=== PATIENT | female | born 1975 | race Caucasian/White ===

== ENCOUNTER 2021-09-23 07:45 | Day surgery (SDC) | payer MEDICAID ==
[2021-09-23 08:00] VITALS: BP 132/78
[2021-09-23] MEDS ORDERED: MIDAZolam 1 MG/ML 5ML VIAL ONE (08:07)
[2021-09-23] MEDS ORDERED: fentaNYL/PF 50MCG/1 ML 2ML syringe ONE (08:07)
[2021-09-23] MEDS ORDERED: NO HOME MEDS (08:14)
[2021-09-23 10:37] VITALS: BP 109/66
[2021-09-23 10:47] VITALS: BP 87/40
[2021-09-23 10:57] VITALS: BP 103/59
[2021-09-23 11:07] VITALS: BP 109/37
== END 2021-09-23 11:20 | disposition home or self-care (01) ==
LOC: GI LAB 07:45
PROVIDERS: ATTEND Internal Medicine Gastroenterology
DX: D12.0 Benign neoplasm of cecum (principal); D12.3 Benign neoplasm of transverse colon; D12.8 Benign neoplasm of rectum; K64.8 Other hemorrhoids
CPT/HCPCS: 45380; 45381; 45385; 99152; 99153; C1773; J2250; J3010; J7030; Z7512; A4620

== ENCOUNTER 2024-08-05 12:01 | Emergency (ER) | payer SELFPAY ==
[~2024-08-05] VITALS: Ht 157.5 cm; Wt 86.5 kg
[2024-08-05 12:01] VITALS: TEMP 97.8
[~2024-08-05 12:01] MED LIST: NO HOME MEDS
[2024-08-05 12:24] LABS: BILIRUBIN,URINE NEGATIVE (Neg); CLARITY,URINE SLIGHTLY CLOUDY (Clear); COLOR,URINE YELLOW (Yellow); GLUCOSE, URINE NEGATIVE (Neg); KETONES,URINE NEGATIVE (Neg); LEUKOCYTE ESTERASE ,URINE NEGATIVE (Neg); NITRITES, URINE NEGATIVE (Neg); OCCULT BLOOD,URINE LARGE (Neg); PH,URINE 5.5 (4.8-8.0); PROTEIN,URINE TRACE mg/dl (Neg); UA COLLECTION TYPE CLN CATCH MIDSTREAM; URINE HCG NEGATIVE (NEG); UROBILINOGEN,URINE 0.2 E.U/dL (0.2-1.0)
[2024-08-05] MEDS: ondansetron/PF 4mg/2ml inj IV ONE (12:41)
[2024-08-05] MEDS: morphine 2 MG/ML inj. syringe IV ONE (12:42)
[2024-08-05] MEDS: normal saline 1000ml 1,000 ML IV ONE (12:42)
[2024-08-05 12:49] LABS: BACTERIA,URINE 1+ /HPF (Neg); MUCUS STRANDS MODERATE /LPF (Neg); RBC,URINE TNTC /HPF (0-2); SQUAMOUS EPITHELIAL CELL,UR MANY /LPF (FEW); WBC,URINE 0-4 /HPF (0-4)
[2024-08-05 13:05] LABS: BASOPHILS # (AUTO) 0.1 X10'3 (0-0.2); BASOPHILS % (AUTO) 0.8 % (0-1); EOSINOPHILS # (AUTO) 0.3 X10'3 (0-0.9); EOSINOPHILS % (AUTO) 2.7 % (0-6); HEMATOCRIT 43.6 % (35.0-45.0); HEMOGLOBIN 14.6 g/dl (12.0-16.0); LYMPHOCYTES # (AUTO) 4.3 X10'3 (1.1-4.8); MEAN CORPUSCULAR HEMOGLOBIN 33.1 PG (27.0-31.0); MEAN CORPUSCULAR HGB CONC 33.5 g/dL (33.0-36.5); MEAN CORPUSCULAR VOLUME 98.7 FL (78-98); MEAN PLATELET VOLUME 9.3 FL (7.4-10.4); MONOCYTES # (AUTO) 0.8 X10'3 (0-0.9); MONOCYTES % (AUTO) 7.1 % (2-12); NEUTROPHILS # (AUTO) 6.2 X10'3 (1.8-7.7); NEUTROPHILS % (AUTO) 52.4 % (42-75); PLATELET COUNT 321 X10'3 (140-440); RED BLOOD COUNT 4.41 X10'6 (4.20-5.60); RED CELL DISTRIBUTION WIDTH 13.8 % (11.5-14.5); WHITE BLOOD COUNT 11.7 X10'3 (4.5-11.0)
[2024-08-05 13:26] LABS: ALANINE AMINOTRANSFERASE 28 U/L (12-78); ALBUMIN 3.7 G/DL (3.4-5.0); ALBUMIN/GLOBULIN RATIO 0.9 (1.1-1.5); ALKALINE PHOSPHATASE 66 IU/L (46-116); ANION GAP 11 (8-16); ASPARTATE AMINO TRANSFERASE 19 U/L (10-37); BILIRUBIN,TOTAL 0.4 MG/DL (0.1-1.0); BLOOD UREA NITROGEN 16 MG/DL (7-18); BUN/CREATININE RATIO 19.3 (10.0-20.0); CHLORIDE 106 MMOL/L (99-107); CREATININE 0.83 MG/DL (0.40-0.90); GLUCOSE 94 MG/DL (70-104); LIPASE 20 U/L (16-77); POTASSIUM 4.3 MMOL/L (3.5-5.1); SODIUM 143 MMOL/L (135-145); TOTAL CARBON DIOXIDE 26.4 MMOL/L (24-32); TOTAL PROTEIN 7.8 G/DL (6.4-8.2); eCRCL 66 ML/MIN; eGFR 73 ML/MIN
--- NOTE | 2024-08-05 14:18 | Physician Documentation ---
History of Present Illness Chief Complaint: Abdominal Pain Stated Complaint: ABDOMINAL/BACK PAIN Time Seen by MD: 12:39 HPI 49 year old female describes stabbing pain to RLQ and R flank starting shortly [employer]. Severe, no association with eating. Denies fevers, diarrhea. + nausea. She is s/p hysterectomy / bilateral oophorectomy. Medication Reconciliation Allergies: Coded Allergies: No Known Allergies (Unverified , 09/23/21) Miscellaneous Medications Home Med List (No Home Medications), (Reported) Review of Systems All Other Systems at this time: Reviewed and Negative Physical Exam Vital Signs: RN Vital Signs have been reviewed: Yes, Temperature: 97.8, Source: Oral, Heart Rate: 71, Respiratory Rate: 16, BP: 139/81, Pulse Oximetry: 98, Weight: 86.500 Oxygen Flow Rate: 0 Physical Exam HEENT: PERRL, moist oral mucosa, EOMI Pulmonary: No respiratory distress GI: nondistended, soft, +TTP RLQ, no guarding, no rebound MSK: no deformity Skin: w/d/i, no rash Neuro: alert, nonfocal Psych: normal affect Progress Results/Orders Results/Orders Orders - ZOË JACQUES MD Ct Abdomen Pelvis (08/05/24 14:00) Completed Orders - ZOË JACQUES MD Hcg, Ur Ql (08/05/24 12:04) Cbc/Diff (08/05/24 12:04) BMP (08/05/24 12:04) Lipase (08/05/24 12:04) CMP (08/05/24 12:04) Ua W/Microscopic, Cult If Ind (08/05/24 12:05) Ondansetron Inj. (Zofran 4mg/2ml Vial) (08/05/24 12:40) Morphine 2mg/Ml Inj. (Morphine Inj.) (08/05/24 12:40) Normal Saline 1000ml (Sodium Chloride 10 (08/05/24 12:40) Ct Abdomen Pelvis (08/05/24 14:00) Medications Received in ER Medications (Trade) Dose Ordered Sig/Jeff Route PRN Reason Start Time Stop Time Status Last Admin Dose Admin (Zofran 4mg/2ml vial) 4 mg ONCE ONCE IV 08/05/24 12:40 08/05/24 12:41 DC 08/05/24 12:41 4 MG (morphine inj.) 1 mg ONCE ONCE IV 08/05/24 12:40 08/05/24 12:41 DC 08/05/24 12:42 1 MG Sodium Chloride 1,000 ml @ 1,000 mls/hr ONCE ONCE IV 08/05/24 12:40 08/05/24 13:39 DC 08/05/24 12:42 1,000 MLS/HR Vital Signs 08/05/24 08/05/24 08/05/24 12:01 12:42 12:51 Temp 97.8 Pulse 71 Resp 16 16 B/P (MAP) 139/81 Pulse Ox 98 O2 Flow Rate 0 Laboratory Tests Test 08/05/24 12:05 08/05/24 12:38 Urine Specimen Description Cln catch midstream Urine Color Yellow Urine Clarity Slightly cloudy Urine pH 5.5 Urine Specific [place] >=1.030 Urine Protein Trace Urine Glucose (UA) Negative Urine Ketones Negative Urine Occult Blood Large H Urine Nitrite Negative Urine Bilirubin Negative Urine Urobilinogen 0.2 Urine Leukocyte Esterase Negative Urine RBC Tntc Urine WBC 0-4 Urine Squamous Epithelial Cells Many Urine Bacteria 1+ Urine Mucus Moderate Urine Culture Indicated Not ind Volume Urine Centrifuged 6 ml Urine HCG, Qualitative Negative Urine Comment Low volume White Blood Count 11.7 H Red Blood Count 4.41 Hemoglobin 14.6 Hematocrit 43.6 Mean Corpuscular Volume 98.7 H Mean Corpuscular Hemoglobin 33.1 H Mean Corpuscular Hemoglobin Concent 33.5 Red Cell Distribution Width 13.8 Platelet Count 321 Mean Platelet Volume 9.3 Neutrophils (%) (Auto) 52.4 Lymphocytes (%) (Auto) 37.0 Monocytes (%) (Auto) 7.1 Eosinophils (%) (Auto) 2.7 Basophils (%) (Auto) 0.8 Neutrophils # (Auto) 6.2 Lymphocytes # (Auto) 4.3 Monocytes # (Auto) 0.8 Eosinophils # (Auto) 0.3 Basophils # (Auto) 0.1 CBC Comment Sodium Level 143 Potassium Level 4.3 Chloride Level 106 Carbon Dioxide Level 26.4 Anion Gap 11 Blood Urea Nitrogen 16 Creatinine 0.83 Estimated GFR/1.73 m2 73 BUN/Creatinine Ratio 19.3 Glucose Level 94 Calcium Level 9.0 Total Bilirubin 0.4 Aspartate Amino Transf (AST/SGOT) 19 Alanine Aminotransferase (ALT/SGPT) 28 Alkaline Phosphatase 66 Total Protein 7.8 Albumin 3.7 Globulin 4.1 Albumin/Globulin Ratio 0.9 L Lipase 20 Chemistry Comments Medical Decision Making Findings 49 year old female with likely kidney stone given description. Indeed UA and CT abdomen/pelvis interpreted by me demonstrated small R sided kidney stone at the UVJ. IVF, meds, improved, will discharge with pain medications and return precautions. Differential Dx:Considerations: Include: Appendicitis, Cholelithasis, Constipation, Diverticular disease, Gastroenteritis, Inflammatory BD, Pancreatitis, Urinary obstruction, Urinary tract infection Departure Disposition: HOME / SELF CARE / HOMELESS Impression: Primary Impression: Kidney stone Condition: Stable Discharge Instructions: Kidney Stones Referrals: NO PRIMARY CARE PROVIDER (PCP) Education Educated: Patient Educated regarding: diagnosis, treatment, prognosis, need for follow up Signature Scribe Signature: . Attestation: . ZOË JACQUES MD Aug 05, 2024 14:18
[2024-08-05] MEDS ORDERED: HYDR-3965 PO (14:20)
--- NOTE | 2024-08-05 14:28 | RADIOLOGY REPORT ---
CLINICAL INFORMATION: Right flank pain and right lower quadrant pain. TECHNIQUE: Axial CT images of the abdomen and pelvis were obtained without IV contrast. Coronal and s agittal reformatted images were obtained, reviewed, and stored. Evaluation of the parenchymal organs is limited without IV contrast. Evaluation of the bowel and mesentery is limited without oral contras t. All CT scans at this medical facility are performed using dose modulation techniques as appropriat e to a performed exam including the following: Automated exposure control was utilized; adjustment of the MA and/or KV according to patient size; and use of iterative reconstruction technique. CTDIvol = 33.98 mGy DLP = 1647.75 mGy-cm COMPARISON: None FINDINGS: Lung bases: Lung bases are clear. Liver: Grossly unremarkable in its noncontrast enhanced appearance. No abnormal density or focal lesi on identified. Biliary: No calcified gallstones or biliary ductal dilatation. Spleen: Unremarkable. Pancreas: Grossly unremarkable in its noncontrast enhanced appearance. Adrenal glands: Unremarkable. No mass. Kidneys and bladder: Moderate right hydronephrosis and hydroureter with 3 mm obstructing calculus in the distal right ureter just proximal to the ureterovesical junction. There are also 2 small adjacent calculi in the right posterior bladder near the ureterovesical junction, with the largest measuring up to 3 mm, possibly recently passed renal calculi. No other renal or ureteral calculi are seen. Mild right periureteral stranding noted. Aorta/Vascular: No aneurysm or significant calcification. Retroperitoneum: No mass or lymphadenopathy. Bowel/mesentery: No small bowel obstruction. No free air or free fluid. Appendix is visualized and ap pears unremarkable. Pelvic organs: Uterus is surgically absent. Abdominal wall: No mass or hernia. Bones: No acute fracture or suspicious intraosseous lesion. IMPRESSION: 1. Moderate right hydronephrosis with 3 mm obstructing calculus in the distal right ureter, just prox imal to the ureterovesical junction and 2 small adjacent calculi in the right posterior bladder, whic h may be recently passed calculi. Correlate with clinical findings. 2. Additional findings as described above
[2024-08-05] MEDS: HYDROcodone/acetaminophen 5mg/325mg tablet PO ONE (14:36)
[2024-08-05 14:43] VITALS: BP 148/63; PULSE 64; RESP 16; O2SAT 99
== END 2024-08-05 14:44 | disposition home or self-care (01) ==
LOC: ER 12:01
DX: N20.0 Calculus of kidney (principal)
CPT/HCPCS: 36415; 74176; 80053; 81001; 81025; 83690; 85025; 96361; 96374; 96375; 99285; J2270; J2405; J7030